=== PATIENT | female | born 1985 | race Caucasian/White ===

== ENCOUNTER 2018-09-06 05:48 | Inpatient (IN) | payer BC ==
[2018-09-06] VITALS (11 sets, daily range): BP systolic 108–144; BP diastolic 54–83; PULSE 81–104; TEMP 97.4–98.2
[~2018-09-06] VITALS: Ht 162.6 cm; Wt 93.6 kg
--- NOTE | 2018-09-06 05:46 | NUR ---
To unit via wheelchair, moaning/crying arching back. To Lr 3, requires assist of 2 to stand, stating "I'm sorry I know I'm pooping but the baby in coming" assisted onto bed on all fours, involuntarily pushing, passing stool yelling "the baby is coming" assisted to back, infant . 0549 Trinidad RN delivers . Infant to warmer. 0553 Moderate of free flow noted 0557 Large amount free flow noted. Pt moaning "why does my butt still hurt?" Placenta noted at vaginal introitus, Pt instructed to push gently. 0558 Placenta delivers spont and intact. fundus firms quickly with massage, minimal lochia 0602 Dr Man into room, perineal inspection complete, no tears noted. Bed together, ice pack to perineum.
--- NOTE | 2018-09-06 06:45 | NUR ---
Report from Ashley Gallardo RN and care of patient assumed. Complete pericare given and ice pack changed. Patient denies need.
[2018-09-06 07:05] LABS: BASO % 0.2 % (0.0-2.0); EOS % 0.2 % (0-4.0); GRAN # 14.3 (1.4-6.5); GRAN % 85.1 % (42.2-75.2); HEMOGLOBIN 12.7 g/dl (12.5-16.0); LYMPH # 1.5 (1.2-3.4); MEAN CELL VOLUME 92 fl (80.0-100.0); MEAN CORPUSCULAR HEMOGLOBIN 32 pg (27.0-31.0); MEAN CORPUSCULAR HGB CONC 35 g/dl (33.0-37.0); MEAN PLATELET VOLUME 9.8 fl (7.4-10.4); MONO # 0.8 (0.1-0.6); MONO % 4.6 % (1.7-9.3); PLATELET COUNT 288 K/mm3 (130-400); REDCELL DISTRIBUTION WIDTH-CV 12.8 % (11.5-14.5)
[2018-09-06 07:06] LABS: HEMATOCRIT 36.6 % (37.0-47.0)
[2018-09-06] MEDS ORDERED: PRENATA1 CTB (15:49)
[2018-09-07 00:30] VITALS: BP 119/51; PULSE 86; TEMP 98.1
[2018-09-07 05:35] VITALS: BP 103/56; PULSE 93; TEMP 98.2
--- NOTE | 2018-09-07 08:49 | NUR ---
Initial visit; Parents sleeping, Otologist left card of congratulations for the of their son and information regarding the availability of spiritual care at [facility].
[2018-09-07 09:20] VITALS: BP 113/71; PULSE 87; TEMP 97.9
[2018-09-07] MEDS ORDERED: IBU600 MG PO (11:53)
== END 2018-09-07 14:50 | disposition home or self-care (01) | DRG 807 ==
LOC: LDRO 05:48 → LDR 06:39 → OB 06:39
PROVIDERS: Obstetrics & Gynecology; ADMIT Obstetrics & Gynecology
PROC: 10E0XZZ Delivery of Products of Conception, External Approach (ICD-10-PCS; principal; 2018-09-06)
DX: O62.3 Precipitate labor (principal); Z37.0 Single live birth; O69.81X0 Labor and delivery complicated by cord around neck, without compression, not applicable or unspecified; Z3A.40 40 weeks gestation of pregnancy